=== PATIENT | male | born 1965 | race Caucasian/White ===

== ENCOUNTER 2018-03-05 22:00 | Inpatient (IN) | payer OTHER ==
[~2018-03-05] VITALS: Ht 172.7 cm; Wt 109.8 kg
[~2018-03-05 22:00] MED LIST: ALTACE5 MG PO; ASPIRIN81 MG; ATROVENT 00.5 MG/2.5 IH; AVANDIA4 MG PO; COZAAR100 MG; COZAAR25 MG; COZAAR50 MG PO; DULERA 100 MCG/13 GM IH; EZETIMIBE10 MG; HUMALOG100 U/ML; HYDROCODONE-CH115 ML PO; JANUMET 50-1,01 EACH; JANUMET 50-1,1 UDTAB; JANUMET 50-1,1 UDTAB PO; LASIX20 MG PO; LEVEMIR FL100 UNIT/1; LEVEMIR FL100 UNIT/1 SUBCUTANEO; LEVEMIR100 U/ML SQ; LEVOTHYROXINE50 MCG; LOVAZA1 G; METOPROLOL SUCC25 MG; NORFLEX100MG PO; NOVOLOG100 UNIT/1; PNEU16DI2; PROVENTIL0.5 ML/2.5 IH; PROVENTIL3 ML/2.5 M IH; PULMICORT1 MG/2 ML IH; SINGULAIR10 MG; TRILIPIX; VOLTAREN-XR100 MG PO; XIGDUO XR 10 M1 EAC1; YANUMET; ZETIA10 MG; ZITHROMAX500 MG PO
[2018-03-12] MEDS ORDERED: ISOSORBIDE MONO30 MG PO (10:45)
[2018-03-12] MEDS ORDERED: CLOPIDOGREL BIS75 MG PO (10:45)
[2018-03-12] MEDS ORDERED: METOPROLOL SUCC25 MG PO (10:47)
[2018-03-12] MEDS ORDERED: HYDRALAZINE HCL25 MG PO (10:54)
[2018-03-12] MEDS ORDERED: ASA-EC81 MG PO (10:57)
[2018-03-12] MEDS ORDERED: AMLODIPINE BESYL5 MG PO (10:58)
[2018-03-12] MEDS ORDERED: ROSUVASTATIN CA40 MG PO (11:00)
[2018-03-12] MEDS ORDERED: FENOFIBRIC ACI135 MG PO (11:01)
== END 2018-03-12 18:20 | disposition home or self-care (01) | DRG 202 ==
LOC: ER 22:00 → MEDI 03-06 09:50
PROC: 3E0F7GC Introduction of Other Therapeutic Substance into Respiratory Tract, Via Natural or Artificial Opening (ICD-10-PCS; principal; 2018-03-06)
PROC: B246ZZZ Ultrasonography of Right and Left Heart (ICD-10-PCS; 2018-03-06)
PROC: BB24ZZZ Computerized Tomography (CT Scan) of Bilateral Lungs (ICD-10-PCS; 2018-03-06)
PROC: 4A12X4Z Monitoring of Cardiac Electrical Activity, External Approach (ICD-10-PCS; 2018-03-06)
PROC: BT43ZZZ Ultrasonography of Bilateral Kidneys (ICD-10-PCS; 2018-03-07)
PROC: B246ZZZ Ultrasonography of Right and Left Heart (ICD-10-PCS; 2018-03-09)
PROC: CB121ZZ Planar Nuclear Medicine Imaging of Lungs and Bronchi using Technetium 99m (Tc-99m) (ICD-10-PCS; 2018-03-10)
PROC: C23GYZZ Positron Emission Tomographic (PET) Imaging of Myocardium using Other Radionuclide (ICD-10-PCS; 2018-03-11)
PROC: 4A12XM4 Monitoring of Cardiac Stress, External Approach (ICD-10-PCS; 2018-03-11)
PROC: 3E033HZ Introduction of Radioactive Substance into Peripheral Vein, Percutaneous Approach (ICD-10-PCS; 2018-03-11)
DX: J45.41 Moderate persistent asthma with (acute) exacerbation (principal); N17.8 Other acute kidney failure; I24.9 Acute ischemic heart disease, unspecified; J44.1 Chronic obstructive pulmonary disease with (acute) exacerbation; G47.33 Obstructive sleep apnea (adult) (pediatric); E66.01 Morbid (severe) obesity due to excess calories; E03.8 Other specified hypothyroidism; E11.3293 Type 2 diabetes mellitus with mild nonproliferative diabetic retinopathy without macular edema, bilateral; E11.65 Type 2 diabetes mellitus with hyperglycemia; I34.0 Nonrheumatic mitral (valve) insufficiency; E78.00 Pure hypercholesterolemia, unspecified; I27.29 Other secondary pulmonary hypertension; K59.09 Other constipation; E11.22 Type 2 diabetes mellitus with diabetic chronic kidney disease; I12.9 Hypertensive chronic kidney disease with stage 1 through stage 4 chronic kidney disease, or unspecified chronic kidney disease; N18.1 Chronic kidney disease, stage 1

== ENCOUNTER 2018-04-03 16:57 | Inpatient (IN) | payer OTHER ==
[~2018-04-03] VITALS: Ht 167.6 cm; Wt 81.6 kg
[~2018-04-03 16:57] MED LIST changes: +AMLODIPINE BESYL5 MG PO; +ASA-EC81 MG PO; +CLOPIDOGREL BIS75 MG PO; +FENOFIBRIC ACI135 MG PO; +HYDRALAZINE HCL25 MG PO; +ISOSORBIDE MONO30 MG PO; +METOPROLOL SUCC25 MG PO; +ROSUVASTATIN CA40 MG PO
== END 2018-04-12 17:05 | disposition home or self-care (01) | DRG 193 ==
LOC: ER 16:57 → MEDI 04-04 15:56 → MEDJ 04-04 15:56 → MEDI 04-05 10:12 → MEDJ 04-08 13:06
PROC: 3E0F7GC Introduction of Other Therapeutic Substance into Respiratory Tract, Via Natural or Artificial Opening (ICD-10-PCS; 2018-04-04)
PROC: B246ZZZ Ultrasonography of Right and Left Heart (ICD-10-PCS; principal; 2018-04-05)
PROC: BW24ZZZ Computerized Tomography (CT Scan) of Chest and Abdomen (ICD-10-PCS; 2018-04-06)
PROC: 8E0ZXY6 Isolation (ICD-10-PCS; 2018-04-08)
DX: J15.7 Pneumonia due to Mycoplasma pneumoniae (principal); I50.31 Acute diastolic (congestive) heart failure; I13.0 Hypertensive heart and chronic kidney disease with heart failure and stage 1 through stage 4 chronic kidney disease, or unspecified chronic kidney disease; N17.8 Other acute kidney failure; I24.9 Acute ischemic heart disease, unspecified; J45.41 Moderate persistent asthma with (acute) exacerbation; N18.1 Chronic kidney disease, stage 1; E66.01 Morbid (severe) obesity due to excess calories; G47.33 Obstructive sleep apnea (adult) (pediatric); E78.00 Pure hypercholesterolemia, unspecified; K59.09 Other constipation; E11.22 Type 2 diabetes mellitus with diabetic chronic kidney disease; I27.29 Other secondary pulmonary hypertension; E03.8 Other specified hypothyroidism

== ENCOUNTER 2018-04-26 21:10 | Emergency (ER) | payer OTHER ==
[~2018-04-26] VITALS: Ht 172.7 cm; Wt 102.1 kg
[2018-04-26] MEDS ORDERED: ASPIR 8181 MG (21:34)
[2018-04-26] MEDS ORDERED: CLOPIDOGREL BIS75 MG (21:34)
[2018-04-26] MEDS ORDERED: FUROSEMIDE40 MG (21:35)
[2018-04-26] MEDS ORDERED: LEVEMIR FL100 UNIT/1 (21:35)
[2018-04-26] MEDS ORDERED: TOPROL XL25 MG (21:36)
[2018-04-26] MEDS ORDERED: LEVO-T50 MCG (21:36)
[2018-04-26] MEDS ORDERED: AVAPRO300 MG (21:36)
[2018-04-26] MEDS ORDERED: ISOSORBIDE DINI30 MG (21:36)
[2018-04-26] MEDS ORDERED: MONTELUKAST SOD10 MG (21:36)
[2018-04-26] MEDS ORDERED: CRESTOR40 MG (21:37)
== END 2018-04-26 22:34 | disposition home or self-care (01) ==
LOC: ER 21:10
DX: M62.830 Muscle spasm of back (principal); M54.5 Low back pain

== ENCOUNTER 2018-05-31 19:50 | Emergency (ER) | payer OTHER ==
[~2018-05-31] VITALS: Ht 162.6 cm; Wt 99.8 kg
[~2018-05-31 19:50] MED LIST changes: +ASPIR 8181 MG; +AVAPRO300 MG; +CLOPIDOGREL BIS75 MG; +CRESTOR40 MG; +FUROSEMIDE40 MG; +ISOSORBIDE DINI30 MG; +LEVO-T50 MCG; +MONTELUKAST SOD10 MG; +TOPROL XL25 MG
[2018-05-31] MEDS ORDERED: LEVEMIR100 UNIT/1 (21:03)
[2018-05-31] MEDS ORDERED: NOVOLOG100 UNIT/1 (21:03)
== END 2018-06-01 01:15 | disposition home or self-care (01) ==
LOC: ER 19:50
DX: S93.492A Sprain of other ligament of left ankle, initial encounter (principal); W18.39XA Other fall on same level, initial encounter; Y93.89 Activity, other specified; Y92.89 Other specified places as the place of occurrence of the external cause; Y99.8 Other external cause status

== ENCOUNTER 2018-12-13 05:24 | Emergency (ER) | payer OTHER ==
[~2018-12-13] VITALS: Ht 172.7 cm; Wt 106.6 kg
[~2018-12-13 05:24] MED LIST changes: +LEVEMIR100 UNIT/1
[2018-12-13] MEDS ORDERED: LANTUS SOL100 UNIT/1 (05:51)
[2018-12-13] MEDS ORDERED: PNEU16DI2 (05:51)
[2018-12-13] MEDS ORDERED: SINGULAIR10 MG PO (07:52)
[2018-12-13] MEDS ORDERED: LEVALBUTER1.25 MG/3 IH (07:52)
[2018-12-13] MEDS ORDERED: IPRATROPIU0.2 MG/1 M IH (07:52)
[2018-12-13] MEDS ORDERED: BUDESONIDE0.5 MG/2 M IH (07:52)
== END 2018-12-13 09:10 | disposition home or self-care (01) ==
LOC: ER 05:24
DX: J45.998 Other asthma (principal)

== ENCOUNTER 2019-03-23 05:50 | Inpatient (IN) | payer OTHER ==
[~2019-03-23] VITALS: Ht 172.7 cm; Wt 99.8 kg
[~2019-03-23 05:50] MED LIST changes: +BUDESONIDE0.5 MG/2 M IH; +IPRATROPIU0.2 MG/1 M IH; +LANTUS SOL100 UNIT/1; +LEVALBUTER1.25 MG/3 IH; +SINGULAIR10 MG PO
[2019-03-29] MEDS ORDERED: HYDRALAZINE HCL25 MG PO (08:57)
== END 2019-03-29 12:53 | disposition home or self-care (01) | DRG 684 ==
LOC: ER 05:50 → SEC-K 11:27 → MEDJ 11:27
PROVIDERS: ADMIT Internal Medicine
PROC: BW4GZZZ Ultrasonography of Pelvic Region (ICD-10-PCS; principal; 2019-03-26)
DX: N17.8 Other acute kidney failure (principal); E11.22 Type 2 diabetes mellitus with diabetic chronic kidney disease; E11.65 Type 2 diabetes mellitus with hyperglycemia; I12.9 Hypertensive chronic kidney disease with stage 1 through stage 4 chronic kidney disease, or unspecified chronic kidney disease; N18.3 Chronic kidney disease, stage 3 (moderate); A08.8 Other specified intestinal infections; D63.1 Anemia in chronic kidney disease; E86.0 Dehydration; E87.8 Other disorders of electrolyte and fluid balance, not elsewhere classified; E11.319 Type 2 diabetes mellitus with unspecified diabetic retinopathy without macular edema; Z79.4 Long term (current) use of insulin

== ENCOUNTER 2019-04-21 18:16 | Inpatient (IN) | payer OTHER ==
[~2019-04-21] VITALS: Ht 172.7 cm; Wt 98.9 kg
== END 2019-04-24 11:43 | disposition home or self-care (01) | DRG 684 ==
LOC: ER 18:16 → MEDJ 04-22 08:42 → SEC-K 04-22 08:42 → MEDJ 04-22 16:43
PROVIDERS: ADMIT Internal Medicine
DX: N17.8 Other acute kidney failure (principal); E11.22 Type 2 diabetes mellitus with diabetic chronic kidney disease; I12.9 Hypertensive chronic kidney disease with stage 1 through stage 4 chronic kidney disease, or unspecified chronic kidney disease; N18.3 Chronic kidney disease, stage 3 (moderate); E66.01 Morbid (severe) obesity due to excess calories; D63.1 Anemia in chronic kidney disease; Z79.4 Long term (current) use of insulin

== ENCOUNTER 2019-04-27 18:29 | Emergency (ER) | payer OTHER ==
[~2019-04-27] VITALS: Ht 172.7 cm; Wt 98.9 kg
[2019-04-28] MEDS ORDERED: BENADRYL50 MG PO (04:15)
== END 2019-04-28 04:43 | disposition home or self-care (01) ==
LOC: ER 18:29
DX: L50.0 Allergic urticaria (principal)

== ENCOUNTER 2019-06-24 04:17 | Emergency (ER) | payer OTHER ==
[~2019-06-24] VITALS: Ht 172.7 cm; Wt 99.8 kg
[~2019-06-24 04:17] MED LIST changes: +BENADRYL50 MG PO
== END 2019-06-24 13:37 | disposition home or self-care (01) ==
LOC: ER 04:17
DX: J45.998 Other asthma (principal)

== ENCOUNTER 2019-12-25 16:02 | Emergency (ER) | payer OTHER | END 2019-12-25 21:14 | disposition home or self-care (01) | LOC: ER 16:02 | DX: R50.9 Fever, unspecified (principal); B96.0 Mycoplasma pneumoniae [M. pneumoniae] as the cause of diseases classified elsewhere; Z03.818 Encounter for observation for suspected exposure to other biological agents ruled out; R06.02 Shortness of breath; R05 Cough; I12.9 Hypertensive chronic kidney disease with stage 1 through stage 4 chronic kidney disease, or unspecified chronic kidney disease; E11.22 Type 2 diabetes mellitus with diabetic chronic kidney disease; N18.9 Chronic kidney disease, unspecified; Z79.4 Long term (current) use of insulin ==